=== PATIENT | female | born 1995 | race Caucasian/White ===

== ENCOUNTER → 2021-09-05 | Day surgery (SDC) | payer MEDICAID ==
[~2021-09-05] MED LIST: Lactated Ringers 1,000 ML IV SCH
== END ==
LOC: CC.SDS 10:06
PROVIDERS: ATTEND Family Medicine
DX: Z33.1 Pregnant state, incidental (principal); Z53.09 Procedure and treatment not carried out because of other contraindication
CPT/HCPCS: 36415; 84703